=== PATIENT | female | born 1975 | race Caucasian/White ===

== ENCOUNTER 2017-12-15 14:59 | Emergency (ER) | payer MEDICAID ==
[2017-12-15] MEDS: HYDROCODONE/APAP (5/325) TAB PO (16:01)
== END 2017-12-15 16:12 | disposition home or self-care (01) ==
LOC: FTE 14:59
DX: L02.212 Cutaneous abscess of back [any part, except buttock and flank] (principal); E11.9 Type 2 diabetes mellitus without complications
CPT/HCPCS: 81025; 99284

== ENCOUNTER 2017-12-16 21:17 | Emergency (ER) | payer MEDICAID ==
[2017-12-16] MEDS: LORAZEPAM 1 MG TAB PO (22:43)
[2017-12-16] MEDS: LIDOCAINE 2% (MDV) 20 ML INJ INJ (22:44)
[2017-12-17] MEDS: LIDOCAINE 2% (MDV) 20 ML INJ INJ (00:06)
[2017-12-17] MEDS: CEFTRIAXONE 1 GM INJ IM (00:06)
== END 2017-12-17 00:38 | disposition home or self-care (01) ==
LOC: FTE 12-17 00:38
DX: L02.212 Cutaneous abscess of back [any part, except buttock and flank] (principal); E11.9 Type 2 diabetes mellitus without complications
CPT/HCPCS: 10060; 96372; 99284-25

== ENCOUNTER 2017-12-18 13:56 | Emergency (ER) | payer MEDICAID | END 2017-12-18 16:24 | disposition home or self-care (01) | LOC: FTE 13:56 | DX: Z48.01 Encounter for change or removal of surgical wound dressing (principal); E11.9 Type 2 diabetes mellitus without complications | CPT/HCPCS: 99281; Z7502 ==

== ENCOUNTER 2017-12-20 13:13 | Emergency (ER) | payer MEDICAID | END 2017-12-20 14:41 | disposition home or self-care (01) | LOC: FTE 13:13 | DX: Z48.01 Encounter for change or removal of surgical wound dressing (principal); E11.9 Type 2 diabetes mellitus without complications | CPT/HCPCS: 99281; Z7502 ==